=== PATIENT | female | born 1930 | race Caucasian/White ===

== ENCOUNTER 2019-06-19 20:01 | Emergency (ER) | payer MEDICARE, BC ==
--- NOTE | 2019-06-19 21:19 | ER Document Report ---
ED Fall <IRMA NEWMAN - Last Filed: 06/20/19 02:18> - General Mode of Arrival: Stretcher Information source: Patient, Relative TRAVEL OUTSIDE OF THE [place] IN LAST 30 DAYS: No - HPI Occurred: Just prior to arrival Where: Home Context: Slipped Associated symptoms: Other - Right arm and hip pain Location of injury/pain: Upper extremity, Lower extremity Quality of pain: Achy Severity: Mild Pain Level: 1 Prehospital interventions: Wound care <KRISTIAN PALOMO - Last Filed: 06/20/19 02:29> - General Chief Complaint: Fall Injury Stated Complaint: FALL,RIGHT ARM AND RIGHT HIP INJURY Time Seen by Provider: 06/19/19 21:18 Primary Care Provider: STEVIE MAIN MD [Primary Care Provider] - Follow up as needed Notes: HISTORY OF PRESENT ILLNESS: Patient is an 88-year-old female with no pertinent past medical history who presents with right arm and hip pain after mechanical fall at home. Patient reports that she was attempting to walk with her walker to the bathroom, however she slipped on water in her kitchen and fell onto hard floor. She denies hitting her head, no loss of consciousness, recalls the entire event in question. Patient denies taking blood thinners. Mechanism of injury: Slip and fall Location: Home Onset: Prior to arrival Provocation: "Slipped on water" Quality: Aching Radiation: None Severity: Mild to moderate Timing: Persistent Numbness/Tingling: None Dominant hand: Left REVIEW OF SYSTEMS: CONSTITUTIONAL : Denies fever or chills, no sweats. Denies recent illness. EENT: Denies eye, ear, throat, or mouth pain or symptoms. Denies nasal or sinus congestion. CARDIOVASCULAR: Denies chest pain. RESPIRATORY: Denies cough, cold, or chest congestion. Denies shortness of breath, difficulty breathing, or wheezing. GASTROINTESTINAL: Denies abdominal pain. Denies nausea, vomiting, or diarrhea. Denies constipation. GENITOURINARY: Denies difficulty urinating, painful urination, burning, frequency, or blood in urine. FEMALE GENITOURINARY: Denies vaginal bleeding, abnormal or irregular periods. Last menstrual period MUSCULOSKELETAL: Positive for right shoulder, elbow, and hip pain. SKIN: Positive for multiple lacerations to the left arm. Denies rash or skin lesions. HEMATOLOGIC : Denies easy bruising or bleeding. LYMPHATIC: Denies swollen, enlarged glands. NEUROLOGICAL: Denies weakness or paralysis or loss of use of either side. Denies problems with gait or speech. Denies sensory or motor loss. PSYCHIATRIC: Denies anxiety or stress or depression. All other systems reviewed and negative. PHYSICAL EXAMINATION: GENERAL: Frail but well-appearing, well-nourished and in no acute distress. HEAD: Atraumatic, normocephalic. No scalp deformity, depression, or crepitance. EYES: Pupils are 3 mm and equal/round/reactive to light, extraocular movements intact, sclera anicteric, conjunctiva are normal. ENT: Nares patent bilaterally, oropharynx clear without exudates or palatal petechia. Moist mucous membranes. No tonsil hypertrophy. NECK: Normal range of motion, supple without lymphadenopathy. LUNGS: Breath sounds present, equal, and clear to auscultation bilaterally. No wheezes, rales, or rhonchi. HEART: Regular rate and rhythm without murmurs, rubs, or gallops. 2+ peripheral pulses. Normal capillary refill. ABDOMEN: Soft, nontender, nondistended. Normoactive bowel sounds. No guarding, no rebound. No masses appreciated. BACK: Normal contour, no midline tenderness. Rectal exam deferred. GENITAL/PELVC: Deferred. EXTREMITIES: Large 12 to 15 cm laceration involving the right medial upper arm that extends into the right axilla, no active bleeding, no visible foreign body, subcutaneous and adipose structures are visualized. Mild pain in the right lateral hip. Normal range of motion, no obvious deformity. No pitting or edema. No cyanosis and normal capillary refill <2 seconds. NEUROLOGICAL: No focal neurological deficits. Moves all extremities spontaneously and on command. PSYCH: Normal mood, normal affect. No suicidal thoughts/ideations. No homicidal thoughts/ideations. No hallucinations. SKIN: Warm, dry, normal turgor, no rashes or lesions noted. ASSESSMENT AND PLAN: This patient is a 88-year-old female who presents with multiple lacerations to the right arm as well as right hip and shoulder pain secondary to mechanical fall at home. 1. Will obtain x-rays of the right arm and hip. 2. Will give oral hydrocodone for pain control as well as doxycycline for prophylaxis. 3. Will repair lacerations. (KRISTIAN PALOMO) - Related data Allergies/Adverse Reactions: Penicillins Allergy (Mild, Verified 06/19/19 20:03) Past Medical History - General Information source: Patient, Relative - Social History Smoking Status: Former Smoker Chew tobacco use (# tins/day): No Frequency of alcohol use: None Drug Abuse: None Lives with: Family Family History: Reviewed & Not Pertinent Patient has suicidal ideation: No Patient has homicidal ideation: No - Past Medical History Cardiac Medical History: Reports: Hx Hypertension Pulmonary Medical History: Reports: None EENT Medical History: Reports: None Neurological Medical History: Reports: None Endocrine Medical History: Reports: None Renal/ Medical History: Reports: None Malignancy Medical History: Reports: None GI Medical History: Reports: None Musculoskeletal Medical History: Reports Hx Arthritis Skin Medical History: Reports None Psychiatric Medical History: Reports: None Traumatic Medical History: Reports: None Infectious Medical History: Reports: None Surgical Hx: Negative - Immunizations Immunizations up to date: Yes Hx Diphtheria, Pertussis, Tetanus Vaccination: Yes <KRISTIAN PALOMO - Last Filed: 06/20/19 02:29> Review of Systems - Review of Systems Constitutional: No symptoms reported EENT: No symptoms reported Cardiovascular: No symptoms reported Respiratory: No symptoms reported Gastrointestinal: No symptoms reported Genitourinary: No symptoms reported Female Genitourinary: No symptoms reported Musculoskeletal: See HPI, Joint pain, Muscle pain Skin: No symptoms reported Hematologic/Lymphatic: No symptoms reported Neurological/Psychological: No symptoms reported -: Yes All other systems reviewed and negative <KRISTIAN PALOMO - Last Filed: 06/20/19 02:29> Physical Exam - Vital signs Interpretation: Normal <KRISTIAN PALOMO - Last Filed: 06/20/19 02:29> - Vital signs Vitals: Temp Pulse Resp BP Pulse Ox 97.6 F 67 20 181/84 H 96 06/19/19 20:14 06/19/19 20:14 06/19/19 20:14 06/19/19 20:14 06/19/19 20:14 Course - Diagnostic Test Radiology reviewed: Image reviewed, Reports reviewed <KRISTIAN PALOMO - Last Filed: 06/20/19 02:29> - Re-evaluation Re-evalutation: 06/20/19 02:23 Imaging is negative. Lacerations have been repaired, please see procedure notes for details. Will discharge the patient home with strict return precautions and follow-up with primary care. All results were explained to and discussed with the patient, and all questions addressed and answered for the patient. The patient and her family voice both understanding and agreeing with the plan. (KRISTIAN PALOMO) - Vital Signs Vital signs: Temp Pulse Resp BP Pulse Ox 97.6 F 66 20 144/65 H 98 06/19/19 20:14 06/19/19 23:46 06/19/19 23:46 06/19/19 23:46 06/19/19 23:46 Procedures - Laceration/Wound Repair Right forearm Wound's Depth, Shape: Linear, Flap, Contused tissue Laceration pre-procedure: Sterile PPE donned, Betadine prep applied, Sterile drapes applied, Shur-Clens applied Anesthetic type: 1% Lidocaine Volume Anesthetic (mLs): 10 Wound explored: Clean Irrigated w/ Saline (mLs): 1,000 Wound Debrided: Minimal Wound Repaired With: Sutures Suture Size/Type: 3:0, Ethilon Number of Sutures: 13 Layer Closure?: Yes Deep Layer Suture Size/Type: 3:0, Other - Vicryl Number Deep Layer Sutures: 6 Post-procedure wound care: Sterile dressing applied Post-procedure NV exam normal: Yes Complications: No <IRMA NEWMAN - Last Filed: 06/20/19 02:18> Discharge <IRMA NEWMAN - Last Filed: 06/20/19 02:18> <KRISTIAN PALOMO - Last Filed: 06/20/19 02:29> - Discharge Clinical Impression: Laceration Fall Qualifiers: Encounter type: initial encounter Qualified Code(s): W19.XXXA - Unspecified fall, initial encounter Condition: Good Disposition: HOME, SELF-CARE Additional Instructions: You have been evaluated in the Emergency Department for falling and cutting her right arm. While here, you had x-rays that were normal and it is now safe to be discharged home. Please follow-up with your primary physician as instructed in one week to be rechecked. Return to the Emergency Department if you experience confusion/disorientation, weakness, high fevers, drainage from your lacerations, or any other concerning symptoms. Prescriptions: Tramadol HCl [Ultram 50 mg Tablet] 50 mg PO Q6HP PRN #28 tablet PRN Reason: For Pain Doxycycline Hyclate 100 mg PO BID #20 capsule Referrals: STEVIE MAIN MD [Primary Care Provider] - Follow up as needed Print Language: Nepalese
[2019-06-19] MEDS ORDERED: HYDROCODONE/ACETAMINOPHEN 5-325 MG TABLET PO ONE (22:30)
--- NOTE | 2019-06-19 23:32 | RADIOLOGY REPORT (SQ) ---
EXAM DESCRIPTION: XR HIP 2 OR MORE VIEWS COMPLETED DATE/TME: 06/19/2019 22:17 CLINICAL HISTORY: 88 years, Female, Fall Findings: Bones are osteopenic. Moderate bilateral hip degenerative changes. No evidence for acute fracture both hips. Soft tissues are unremarkable. IMPRESSION: No evidence for hip fracture.
--- NOTE | 2019-06-19 23:33 | RADIOLOGY REPORT (SQ) ---
XR HUMERUS CLINICAL STATEMENT: Fall No prior studies available at this institution for comparison. 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 There appears to be a chronic right proximal humeral fracture with impaction. Moderate acromioclavicular degenerative changes. The bones are osteopenic. IMPRESSION: Evaluation is limited by severe right shoulder degenerative changes. There appears to be chronic right proximal humeral deformity with old fracture. No definite acute fracture.
--- NOTE | 2019-06-19 23:44 | RADIOLOGY REPORT (SQ) ---
XR FOREARM 2 VIEWS CLINICAL STATEMENT: Fall COMPARISON: None FINDINGS: Bony alignment is anatomic. There is no fracture or dislocation. The soft tissues are unremarkable. Bones are osteopenic. Dislocation. There is a large soft tissue defect noted posterior to the elbow joint. IMPRESSION: No fracture. Large soft tissue defect posterior to the elbow joint.
[2019-06-20] MEDS ORDERED: LIDOCAINE 1% INJ-PF (10 MG/ML) 30 ML SDV INJ ONE (01:25)
[2019-06-20 02:54] VITALS: BP 156/51
== END 2019-06-20 02:57 | disposition home or self-care (01) ==
LOC: ER 20:01
DX: S51.811A Laceration without foreign body of right forearm, initial encounter (principal); M25.551 Pain in right hip; W01.0XXA Fall on same level from slipping, tripping and stumbling without subsequent striking against object, initial encounter; I10 Essential (primary) hypertension
CPT/HCPCS: 73090; 73502; 73060; 12005; J3490; A9270; 99283